=== PATIENT | male | born 1955 | race Caucasian/White ===

== ENCOUNTER → 2019-08-29 | Outpatient (CLI) | payer OTHER ==
--- NOTE | 2019-08-29 10:53 | XR ---
EXAMINATION TYPE: XR chest 2V DATE OF EXAM: 08/29/2019 COMPARISON: 08/21/2014 HISTORY: COPD and cough TECHNIQUE: Frontal and lateral views of the chest are obtained. FINDINGS: There is no focal air space opacity, pleural effusion, or pneumothorax seen. Hyperinflatio n with flattening of the diaphragms is indicative of underlying COPD. Main pulmonary arteries are enl arged suggesting pulmonary arterial hypertension. The cardiac silhouette size is within normal limits . The osseous structures are intact. Minimal degenerative changes of the spine. IMPRESSION: No acute cardiopulmonary process. COPD and findings suggesting underlying pulmonary freddy rial hypertension.
== END | disposition home or self-care (01) ==
LOC: RADXRMAIN 09:55
PROVIDERS: ATTEND Family Medicine
DX: J44.9 Chronic obstructive pulmonary disease, unspecified (principal)
CPT/HCPCS: 71046

== ENCOUNTER → 2021-09-24 | Outpatient (CLI) | payer MEDICARE, OTHER ==
--- NOTE | 2021-09-24 11:33 | ECHOF ---
Referral Reason:R07.9 chest pain unspecified MEASUREMENTS -------- HEIGHT: 177.8 cm WEIGHT: 81.7 kg BP: RVIDd: 2.8 cm (< 3.3) IVSd: 1.0 cm (0.6 - 1.1) LVIDd: 4.9 cm (3.9 - 5.3) LVPWd: 1.0 cm (0.6 - 1.1) IVSs: 1.2 cm LVIDs: 4.3 cm LVPWs: 1.1 cm LAESV Index (A-L): 28.18 ml/m Ao Diam: 3.7 cm (2.0 - 3.7) AV Cusp: 2.2 cm (1.5 - 2.6) LA Diam: 4.3 cm (2.7 - 3.8) MV EXCURSION: 15.271 mm (> 18.000) MV EF SLOPE: 86 mm/s (70 - 150) EPSS: 0.3 cm MV E Raji: 0.45 m/s MV DecT: 290 ms MV A Raji: 0.63 m/s MV E/A Ratio: 0.71 RAP: 5.00 mmHg RVSP: 13.79 mmHg FINDINGS -------- Sinus rhythm. This was a technically good study. LV size, wall thickness and systolic function are normal, with an EF greater than 55%. The left maria ines tricular size is normal. The right ventricle is normal in size. Normal LA size by volume 22+/-6 ml/m2. The right atrial size is normal. The aortic valve is trileaflet, and appears structurally normal. No aortic stenosis or regurgitation. Mild mitral regurgitation is present. Mild tricuspid regurgitation present. Right ventricular systolic pressure is normal at < 35 mmHg. There is no pulmonic regurgitation present. There is no pericardial effusion. CONCLUSIONS -------- 1. LV size, wall thickness and systolic function are normal, with an EF greater than 55%. 2. The left ventricular size is normal. 3. The right ventricle is normal in size. 4. Normal LA size by volume 22+/-6 ml/m2. 5. The right atrial size is normal. 6. The aortic valve is trileaflet, and appears structurally normal. No aortic stenosis or regurgitati on. 7. Mild mitral regurgitation is present. 8. Mild tricuspid regurgitation present. 9. There is no pericardial effusion. [employer]: Natasha Pond RDCS
--- NOTE | 2021-09-24 14:19 | EST ---
EXERCISE STRESS AGE: 66 SEX: M HT: 5'10" WT: 180 lbs. PROTOCOL: Brian STAGE: 3 DURATION OF EXERCISE: 8:20 HEART RATE REST: 70 BLOOD PRESSURE REST: 148/96 MAXIMUM HEART RATE ACHIEVED: 136 MAXIMUM BLOOD PRESSURE: 200/88 85% MPHR: 132 100% MPHR: 155 METS: 10.3 RESULTS: Baseline EKG revealed normal sinus rhythm without significant ST-T changes. Patient walked for 8 minutes 20 seconds, achieved a maximal heart rate of 136 beats per minute, developed fatigue, shortness of breath but did not have angina. EKG did not reveal any ST-segment changes to indicate ischemia. By EKG criteria, this is a negative stress test with fair exercise capacity. There was no angina or arrhythmia. MMODL / IJN: [id number] /
== END | disposition home or self-care (01) ==
LOC: RADECHMAIN 08:24
PROVIDERS: ATTEND Family Medicine
DX: J44.9 Chronic obstructive pulmonary disease, unspecified (principal); I34.0 Nonrheumatic mitral (valve) insufficiency; I07.1 Rheumatic tricuspid insufficiency
CPT/HCPCS: 93017; 93306

== ENCOUNTER → 2023-09-08 | Outpatient (CLI) | payer MEDICARE, OTHER ==
--- NOTE | 2023-09-08 16:55 | XR ---
EXAMINATION TYPE: XR chest 2V DATE OF EXAM: 09/08/2023 COMPARISON: 08/30/2021 HISTORY: 68-year-old male encounter for general adult medical exam, presents with chronic bronchitis, shortness of breath, difficulty breathing, current smoker. TECHNIQUE: Frontal and lateral views FINDINGS: The cardiomediastinal silhouette, aorta, and pulmonary vasculature are within normal limits. There is hyperinflation. Otherwise, lungs and pleural spaces are clear. IMPRESSION: COPD. No acute process seen.
== END | disposition home or self-care (01) ==
LOC: RADXRMAIN 10:07
PROVIDERS: ATTEND Family Medicine
DX: Z00.00 Encounter for general adult medical examination without abnormal findings (principal); J44.9 Chronic obstructive pulmonary disease, unspecified; F17.200 Nicotine dependence, unspecified, uncomplicated
CPT/HCPCS: 71046